=== PATIENT | male | born 2005 | race Caucasian/White ===

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

== ENCOUNTER → 2024-02-19 10:29 | Outpatient (BNVA) | payer MEDICAID, SELFPAY | PROVIDERS: PCP Nurse Practitioner; Visit Provider Podiatrist Foot & Ankle Surgery | DX: M21.70 Unequal limb length (acquired), unspecified site (principal); Z87.39 Personal history of other diseases of the musculoskeletal system and connective tissue | CPT/HCPCS: 77073; 99203 ==

== ENCOUNTER 2025-02-08 18:56 | Emergency (ER) | payer MEDICAID, SELFPAY ==
[2025-02-08 19:02] VITALS: BP 115/74; PULSE 83; RESP 18; TEMP 36.7; O2SAT 97; BMI 29.3
[2025-02-08 19:33] VITALS: BP 141/71; PULSE 95; O2SAT 98
--- NOTE | 2025-02-08 19:46 | ED_ITS ---
HPI - Animal Bite General: Chief Complaint: Animal Bite Stated Complaint: R leg pain, spider bite per urgent care Time Seen by Provider: 02/08/25 19:38 Source: patient Mode of arrival: ambulatory Limitations: no limitations History of Present Illness: 19-year-old male states he had an absces s he noted to his right lower leg 2 days ago and has had erythema and swelling with some drainage states it is painful to touch rates his pain a 5 out of 10 he denies any fevers denies any injuries or known bites. Associated symptoms: Deny chills, fever(s) or headache(s) Related Data Home Medications ?Medication ?Instructions ?Recorded ?Confirmed meloxicam 7.5 mg tablet 7.5 mg PO DAILY 02/08/25 Previous Rx's ?Medication ?Instructions ?Recorded albuterol sulfate 90 mcg/actuation 2 puff inhalation Q 4H PRN asthma 06/28/21 aerosol inhaler (ProAir HFA) #8.5 grams acetaminophen 325 mg capsule 325 mg PO QID PRN fever o r pain 01/16/22 #30 caps ibuprofen 200 mg capsule 200 mg PO Q6H PRN pain #30 c aps 01/16/22 levocetirizine 5 mg tablet See Rx Instructions .Route 10/11/23 .COMPLEX #90 tabs extra-depth orthopedic shoes and #1 ea 02/19/24 internal heel lift built up to 3 cm custom insoles build up on right #1 ea 02/24/24 sulfamethoxazole 800 1 tab PO BID 10 days #20 tab s 02/08/25 mg-trimethoprim 160 mg tablet (Bactrim DS) Allergies Allergy/AdvReac Type Severity Reaction Status Date / Time midazolam (From Versed) AdvReac Mild ADR-Agitate Verified 02/08/25 19:05 d Review of Systems Const: Denies: fever(s), chills, body aches or change in appetite ENMT: Denies: throat pain or dental pain Card: Denies: chest pain Resp: Denies: dyspnea GI: Denies: abdominal pain, nausea, vomiting or diarrhea Musc: Denies: neck pain or back pain Skin/Breast: Reports: erythema; Denies: rash Neuro: Denies: headache(s) PFSH ED PFSH: Medical History Allergic rhinitis Chronic sinusitis Iron deficiency anemia Jrai-Yfkyv-Dorufsq disease Asthma Surgical History Hx of left knee surgery History of lung biopsy Hx of sinus surgery Hx of release of tendon History of repair of right hip joint Family History Grandfather Multiple sclerosis Other Cancer Clotting disorder Diabetes Hypertension Spinal stenosis Stroke Social History Smoking and tobacco/nicotine status: never used tobacco/nicotine Second hand smoke exposure: Yes Alcohol intake: never Substance/Drug Use: never Adopted: No Highest education level completed: 10th Grade Physical Exam Const: COMMON NORMALS: no acute distress, patient oriented x3 and healthy appearing HENMT: COMMON NORMALS: normocephalic and atraumatic HEAD & SCALP: normocephalic and atraumatic Eye: COMMON NORMALS: conjunctivae normal CONJUNCTIVA: Yes conjunctivae normal Neck/C-Spine: COMMON NORMALS: full ROM and supple Chest: COMMONS NORMALS: normal inspection of the chest Resp: COMMON NORMALS: normal respiratory effort Cardio: COMMON NORMALS: regular rate RATE: regular rate Extremity: COMMON NORMALS: full ROM Neuro: COMMON NORMALS: patient oriented x3, moves all extremities and no focal motor deficits Psych: COMMON NORMALS: mental status grossly normal, Normal thought process present and cooperative THOUGHT PROCESS: Normal thought process present Skin: NARRATIVE SKIN EXAM: 2 cm abscess right lower leg Procedures Abscess I/D Site: lower extremity Side (if applicable): right Local Anesthetic: lidocaine 1% Amount of anesthesia used (mL): 8 Technique: incised with #11 blade Irrigation: No Packing used?: none Course Vital Signs: Vital signs: Vital Signs Temperature 98.0 F 02/08/25 19:02 Pulse Rate 95 02/08/25 19:33 Respiratory Rate 18 02/08/25 19:02 Blood Pressure 141/71 02/08/25 19:33 Pulse Oximetry 98 02/08/25 19:33 Oxygen Delivery Me thod Room Air 02/08/25 19:02 MDM - Animal Bite Medical Decision Making Patient presents for an abscess right lower leg did incise and drain it we will place him on Bactrim he is to do warm compresses follow-up with PCP return if worsening he understands agrees to plan. No radiology studies performed this visit Discharge Plan Discharge Patient Disposition: Home Clinical Impression: Abscess Condition: Stable Prescriptions: New sulfamethoxazole-trimethoprim [Bactrim DS] 800-160 mg tablet 1 tab PO BID 10 Days Qty: 20 0RF No Action acetaminophen 325 mg capsule 325 mg PO QID PRN (Reason: fever or pain) Qty: 30 0RF Rx Instructions: Take 1 or 2 capsules every 4 hours as needed for pain. ibuprofen 200 mg capsule 200 mg PO Q6H PRN (Reason: pain) Qty: 30 0RF Rx Instructions: Take 1 or 2 caps every 6-8 hours as needed for pain; do not take Naproxen (naprosyn) if ibuprofen taken. (DME) extra-depth orthopedic shoes and internal heel lift built up to 3 cm See Rx Instructions .Route .MEDSUPPLY Qty: 1 0RF Rx Instructions: As directed meloxicam 7.5 mg tablet 7.5 mg PO DAILY albuterol sulfate [ProAir HFA] 90 mcg/actuation HFA aerosol inhaler 2 puff INHALATION Q4H PRN (Reason: asthma) Qty: 8.5 3RF levocetirizine 5 mg tablet See Rx Instructions .ROUTE .COMPLEX Qty: 90 1RF Dose Instruction: TAKE 1 TABLET BY MOUTH EVERY DAY *TAKE INSTEAD OF CETIRIZINE* Rx Instructions: TAKE 1 TABLET BY MOUTH EVERY DAY *TAKE INSTEAD OF CETIRIZINE* (DME) custom insoles build up on right See Rx Instructions .Route .MEDSUPPLY Qty: 1 0RF Rx Instructions: As directed Discharge Orders: Discharge ED (Routine); Ordered 02/08/25 Ordered By: Merlene Church Referrals: Albina Freedman, MAGNETIC PROSPECTING OPERATOR [Primary Care Provider] - 4-7 days Discharge Diet: Advance as tolerated Discharge Activity: Resume usual activity Patient Instructions: Abscess (ED) Print Language: [place] Citizen Coding Level of Care Code ED Wash Plant Operator for Parker Brian
[2025-02-08] MEDS: sulfamethoxazole-trimeth DS 160-800 mg Tablet 1 TAB PO (19:59)
[2025-02-08 20:12] VITALS: BP 130/72; PULSE 90; O2SAT 98
[2025-02-08 20:13] VITALS: BP 130/72; PULSE 90; O2SAT 98
== END 2025-02-08 20:10 | disposition home or self-care (01) ==
PROVIDERS: Emergency Provider Emergency Medicine; PCP Nurse Practitioner Family
DX: L02.415 Cutaneous abscess of right lower limb (principal)
CPT/HCPCS: 10060; 87070; 87077; 87186; 99283; J9999

== ENCOUNTER → 2025-02-28 17:32 | Outpatient (BNVA) | payer BC, MEDICAID, SELFPAY | PROVIDERS: PCP Nurse Practitioner Family; Visit Provider Emergency Medicine | DX: M25.531 Pain in right wrist (principal) | CPT/HCPCS: 73110 ==

== ENCOUNTER → 2025-10-13 09:40 | Outpatient (BNVA) | payer MEDICAID, SELFPAY | PROVIDERS: PCP Nurse Practitioner Family; Visit Provider Nurse Practitioner | DX: R06.2 Wheezing (principal) | CPT/HCPCS: 71046 ==